=== PATIENT | female | born 1995 | race Caucasian/White ===

== ENCOUNTER 2020-11-18 11:35 | Emergency (ER) | payer MEDICAID ==
[~2020-11-18] VITALS: Ht 162.6 cm; Wt 73.2 kg
[2020-11-18 11:43] VITALS: TEMP 97.9
[2020-11-18 12:20] LABS: COLLECTION METHOD CLEAN CATCH
[2020-11-18 12:27] LABS: BASO % 0.5 % (0.0-2.0); EOS # 0.1 (0.0-0.7); EOS % 0.9 % (0-4.0); GRAN % 69.6 % (42.2-75.2); HEMOGLOBIN 10.5 g/dl (12.5-16.0); LYMPH # 1.4 (1.2-3.4); LYMPH % 23.6 % (20.0-51.0); MEAN CELL VOLUME 85 fl (80.0-100.0); MEAN CORPUSCULAR HEMOGLOBIN 28 pg (27.0-31.0); MEAN CORPUSCULAR HGB CONC 33 g/dl (33.0-37.0); MEAN PLATELET VOLUME 10.4 fl (7.4-10.4); MONO # 0.3 (0.1-0.6); MONO % 5.2 % (1.7-9.3); PLATELET COUNT 225 K/mm3 (130-400); RED BLOOD COUNT 3.74 M/mm3 (4.10-5.30); REDCELL DISTRIBUTION WIDTH-CV 12.3 % (11.5-14.5)
[2020-11-18 12:29] LABS: MUCOUS Present /lpf; PH 7 (5-8); SQUAMOUS EPITHELIAL None Seen /hpf; URINE APPEARANCE Clear; URINE BACTERIA None Seen /hpf; URINE BILIRUBIN Negative (NEGATIVE); URINE BLOOD Negative (NEGATIVE); URINE COLOR Yellow; URINE GLUCOSE Negative (NEGATIVE); URINE KETONE Trace (NEGATIVE); URINE LEUKOCYTE ESTERASE Negative (NEGATIVE); URINE NITRATE Negative (NEGATIVE); URINE PROTEIN(semi-quant) Negative (NEGATIVE); URINE UROBILINOGEN Negative (NEGATIVE)
[2020-11-18 12:32] LABS: HEMATOCRIT 31.9 % (37.0-47.0)
[2020-11-18 12:35] LABS: ALANINE AMINOTRANSFERASE 10 U/L (4-34); ALBUMIN 3.4 gm/dL (3.5-5.0); ALKALINE PHOSPHATASE 89 U/L (50-136); ANION GAP 5 mmol/L (7-16); AST,SGOT 30 U/L (15-37); BILIRUBIN,TOTAL 0.2 mg/dL (0.0-1.0); BLOOD UREA NITROGEN 5 mg/dL (7-17); CALCIUM 8.4 mg/dL (8.4-10.2); CARBON DIOXIDE 21 mmol/L (22-30); CHLORIDE 108 mmol/L (98-107); CREATININE, serum 0.44 (0.52-1.25); GLUCOSE 70 mg/dL (74-106); SODIUM 134 mmol/L (137-145); TOTAL PROTEIN 6.4 gm/dL (6.4-8.2)
[2020-11-18 12:36] LABS: C-REACTIVE PROTEIN < 0.5 mg/dL (0.0-0.9)
[2020-11-18] MEDS ORDERED: PHENERGAN 25 TA25 MG PO (13:25)
--- NOTE | 2020-11-18 13:38 | NUR ---
1338- [facility] reactive. ER nurse, Jessica notified.
[2020-11-18 13:50] VITALS: BP 100/69; PULSE 62
== END 2020-11-18 13:50 | disposition home or self-care (01) ==
LOC: COL.ER 11:35
PROVIDERS: Family Medicine
DX: O99.353 Diseases of the nervous system complicating pregnancy, third trimester (principal); G43.909 Migraine, unspecified, not intractable, without status migrainosus; Z3A.33 33 weeks gestation of pregnancy
CPT/HCPCS: J2550; J7120

== ENCOUNTER 2020-12-30 02:06 | Inpatient (IN) | payer MEDICAID ==
[~2020-12-30] VITALS: Ht 165.1 cm; Wt 75.9 kg
[2020-12-30] VITALS (13 sets, daily range): BP systolic 109–154; BP diastolic 67–92; PULSE 56–95; TEMP 97.7–98.2
[~2020-12-30 02:06] MED LIST: PHENERGAN 25 TA25 MG PO
--- NOTE | 2020-12-30 02:07 | NUR ---
[id number]: Attempted to find hearttones prior to delivery but unsuccessful due to precip delivery.
--- NOTE | 2020-12-30 02:14 | NUR ---
0205- pt arrives to unit via wheelchair with ER nurse. Pt states she experienced SROM approximately 30 minutes prior and can feel the baby coming now. pt to room, assisted out of street clothes and into bed. head . Dr. Araujo notified of impending delivery, already at the hospital so heading to unit now. 0207- this nurse encourages pt to breath or pant during contractions but pt states, "I can't help it, I'm pushing." This nurse delivers head as Dr. Araujo enters the room. Dr. Araujo takes over remainder of delivery and encourages pt to push to delivery body. Spontaneous vaginal delivery of viable baby girl. Cord clamped by Dr. Araujo and cut by FOB. Baby cares assusmed by Lilia Pelletier RN. Blade Banuelos RN assumes care of pt. 0214- Spontaneous delivery of intact placenta, pitocin started at 333ml/hr per protocol. Intact perineum. 0215- recovery started.
[2020-12-30 02:40] LABS: BASO # 0.1 (0.0-0.2); BASO % 0.6 % (0.0-2.0); EOS # 0.1 (0.0-0.7); EOS % 0.9 % (0-4.0); GRAN # 6.5 (1.4-6.5); GRAN % 74.3 % (42.2-75.2); HEMOGLOBIN 10.9 g/dl (12.5-16.0); LYMPH # 1.6 (1.2-3.4); LYMPH % 18.2 % (20.0-51.0); MEAN CELL VOLUME 83 fl (80.0-100.0); MEAN CORPUSCULAR HEMOGLOBIN 26 pg (27.0-31.0); MEAN CORPUSCULAR HGB CONC 32 g/dl (33.0-37.0); MEAN PLATELET VOLUME 11.3 fl (7.4-10.4); MONO # 0.5 (0.1-0.6); MONO % 5.7 % (1.7-9.3); PLATELET COUNT 215 K/mm3 (130-400); RED BLOOD COUNT 4.13 M/mm3 (4.10-5.30); REDCELL DISTRIBUTION WIDTH-CV 13.1 % (11.5-14.5)
[2020-12-30 02:42] LABS: HEMATOCRIT 34.1 % (37.0-47.0)
--- NOTE | 2020-12-30 04:45 | NUR ---
Pt bleeding WNL with no clots noted. Pt assisted to edge of bed without difficulty. Pt denies dizziness or lightheadedness. Pt ambulatory to bathroom, standby assist. Able to void. Pericare explained and provided. Pt ambulatory to room, standby assist and oriented to room. Call light within reach.
--- NOTE | 2020-12-30 10:27 | NUR ---
Initial viist attempt; Nurse present, Vice President Of News left card of congratulations and God's blessings for the of their daughter. Vice President Of News thanked Family for choosing [facility].
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
[2020-12-31 02:00] VITALS: BP 119/67; PULSE 60; TEMP 98.2
[2020-12-31 08:02] VITALS: BP 130/62; PULSE 72; TEMP 97.8
--- NOTE | 2020-12-31 08:05 | NUR ---
Patient refuses COVID19 test.
[2020-12-31] MEDS ORDERED: MOTRIN 800800 MG/TAB PO (08:47)
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
--- NOTE | 2021-01-02 09:53 | NUR ---
early childhood worker spoke with Lili at [facility] in [place] and provided demographic information. Lili will contact patient and arrange appointment to establish primary care physician.
== END 2020-12-31 14:07 | disposition home or self-care (01) | DRG 807 ==
LOC: LDRO 02:06 → LDR 02:21 → OB 02:59
PROVIDERS: Obstetrics & Gynecology; ADMIT Obstetrics & Gynecology
PROC: 10E0XZZ Delivery of Products of Conception, External Approach (ICD-10-PCS; principal; 2020-12-30)
PROC: 10907ZC Drainage of Amniotic Fluid, Therapeutic from Products of Conception, Via Natural or Artificial Opening (ICD-10-PCS; 2020-12-30)
DX: O62.3 Precipitate labor (principal); Z37.0 Single live birth; Z3A.39 39 weeks gestation of pregnancy; O99.344 Other mental disorders complicating childbirth; F41.8 Other specified anxiety disorders; F32.9 Major depressive disorder, single episode, unspecified
CPT/HCPCS: J2590; J7120

== ENCOUNTER 2021-01-06 13:16 | Emergency (ER) | payer MEDICAID ==
[~2021-01-06] VITALS: Ht 162.6 cm; Wt 71.4 kg
[~2021-01-06 13:16] MED LIST changes: +MOTRIN 800800 MG/TAB PO
[2021-01-06 13:28] VITALS: TEMP 98.1
[2021-01-06 14:17] LABS: BASO # 0.1 (0.0-0.2); BASO % 0.8 % (0.0-2.0); EOS # 0.1 (0.0-0.7); GRAN # 4.4 (1.4-6.5); GRAN % 70.2 % (42.2-75.2); HEMATOCRIT 37.3 % (37.0-47.0); HEMOGLOBIN 11.7 g/dl (12.5-16.0); LYMPH # 1.5 (1.2-3.4); LYMPH % 23.1 % (20.0-51.0); MEAN CELL VOLUME 82 fl (80.0-100.0); MEAN CORPUSCULAR HEMOGLOBIN 26 pg (27.0-31.0); MEAN CORPUSCULAR HGB CONC 31 g/dl (33.0-37.0); MEAN PLATELET VOLUME 9.8 fl (7.4-10.4); MONO # 0.3 (0.1-0.6); MONO % 4.6 % (1.7-9.3); PLATELET COUNT 301 K/mm3 (130-400); RED BLOOD COUNT 4.56 M/mm3 (4.10-5.30); REDCELL DISTRIBUTION WIDTH-CV 13.4 % (11.5-14.5)
[2021-01-06 14:36] LABS: ALBUMIN 3.6 gm/dL (3.5-5.0); BILIRUBIN,TOTAL 0.5 mg/dL (0.0-1.0); CALCIUM 9.1 mg/dL (8.4-10.2); CREATININE, serum 0.66 (0.52-1.25); POTASSIUM 3.9 mmol/L (3.4-5.0)
[2021-01-06 14:50] LABS: INR 1.1 (0.8-3.0); PROTHROMBIN TIME 12.2 SECONDS (9.7-12.8)
[2021-01-06] MEDS ORDERED: TRANDATE 100MG100 MG PO (15:05)
[2021-01-06] MEDS ORDERED: PROCARDIA XL 3030 MG PO (16:08)
[2021-01-06 16:13] VITALS: BP 136/83; PULSE 50
== END 2021-01-06 16:15 | disposition home or self-care (01) ==
LOC: COL.ER 13:16
PROVIDERS: Nurse Practitioner
DX: O16.5 Unspecified maternal hypertension, complicating the puerperium (principal)